=== PATIENT | female | born 1995 | race Caucasian/White ===

== ENCOUNTER 2021-07-20 20:00 | Emergency (ER) | payer BC ==
[~2021-07-20] VITALS: Ht 167.6 cm; Wt 59.0 kg
[2021-07-20] MEDS ORDERED: DUI500 PO (20:39)
[2021-07-20] MEDS ORDERED: ALBENDAZOLE200 MG PO (20:39)
== END 2021-07-20 20:43 | disposition home or self-care (01) ==
LOC: ER 20:00
DX: B76.9 Hookworm disease, unspecified (principal)